=== PATIENT | female | born 1960 | race Caucasian/White ===

== ENCOUNTER 2017-07-19 19:14 | Emergency (ER) | payer BC ==
[~2017-07-19] VITALS: Ht 167.6 cm; Wt 104.4 kg
[2017-07-19] MEDS ORDERED: REQUIP4 MG PO (19:51)
[2017-07-19] MEDS ORDERED: AMLODIPINE BESY10 MG PO (19:52)
[2017-07-19] MEDS ORDERED: LISINOPRIL40 MG PO (19:52)
[2017-07-19] MEDS ORDERED: LANTUS 3 M100 UNITS1 SC (19:53)
[2017-07-19] MEDS ORDERED: ASPIR 8181 M1 PO (19:53)
[2017-07-19] MEDS ORDERED: BUPROPION XL300 MG PO (19:53)
[2017-07-19] MEDS ORDERED: METFORMIN HCL500 M4 PO (19:54)
[2017-07-19 21:57] LABS: HEMATOCRIT 34.1 % (36.0-46.0); MCH 30.2 PG (29.0-34.0); MCHC 33.7 G/DL (30.0-36.0); MCV 89.5 FL (83-99); MEAN PLAT.VOLUME 9.3 uM^3 (9.5-12.4); PLATELET COUNT 180 K/uL (156-360); RBC DIS.WIDTH-CV 13.2 % (11.8-14.6); RBC DIS.WIDTH-SD 43.3 % (39-53); RED BLOOD COUNT 3.81 M/uL (3.80-5.20)
[2017-07-19 22:13] LABS: CHLORIDE 110 mEq/L (99-109); SODIUM 140 mEq/L (136-147)
[2017-07-19 22:14] LABS: POINT-OF-CARE METER ID UU13113747
[2017-07-19 22:15] LABS: GLUCOSE 184 mg/dL (70-99)
[2017-07-19 22:17] LABS: ANION GAP 10 MEQ/L (2-14); TOTAL BILIRUBIN 0.4 mg/dL (0.0-1.0)
[2017-07-19 22:19] LABS: ALKALINE PHOSPHATASE 76 IU/L (3-129); GFR ESTIMATE (CALCULATED) > 59 mL/min/
[2017-07-19 22:20] LABS: UREA NITROGEN (BUN) 19 mg/dL (9-23)
[2017-07-19 22:25] LABS: INTER. NORMALIZED RATIO 1.1; PROTHROMBIN TIME 11.7 SEC (10.2-12.9)
[2017-07-19 22:28] LABS: PTT 23.7 SEC (25-37)
[2017-07-20 01:20] VITALS: BP 140/72
== END 2017-07-20 01:20 | disposition short-term general hospital (02) ==
LOC: EME 19:14 → EDBD 19:14 → EME 07-20 01:20
PROVIDERS: Emergency Medicine
DX: S72.491A Other fracture of lower end of right femur, initial encounter for closed fracture (principal); X50.1XXA Overexertion from prolonged static or awkward postures, initial encounter; V28.3XXA Person boarding or alighting a motorcycle injured in noncollision transport accident, initial encounter; Z96.651 Presence of right artificial knee joint; Z96.641 Presence of right artificial hip joint; I10 Essential (primary) hypertension; E11.9 Type 2 diabetes mellitus without complications; Z79.4 Long term (current) use of insulin; Z79.82 Long term (current) use of aspirin
CPT/HCPCS: 71010; 73552; 73560; 80053; 82948; 85027; 85610; 85730; 86850; 86900; 86901; 93005; 99281; 99285; J1170; J3010; J7050